=== PATIENT | female | born 2000 | race African-American/Black ===

== ENCOUNTER 2020-09-06 09:56 | Emergency (ER) | payer MEDICAID ==
[~2020-09-06] VITALS: Ht 162.6 cm; Wt 54.0 kg
[~2020-09-06 09:56] MED LIST: [UNRECOGNIZED DRUG - OTHER]
[2020-09-06] MEDS ORDERED: ONDANSETRON HCL 4MG/2ML INJ IV STA (10:23)
[2020-09-06] MEDS ORDERED: FAMOTIDINE 20MG/2ML VIAL IV STA (10:23)
[2020-09-06] MEDS ORDERED: HALOPERIDOL LACTATE 5MG/ML VIAL IM ONE (10:30)
[2020-09-06] MEDS ORDERED: SODIUM CHLORIDE 0.9% 1,000 ML IV ONE (10:30)
[2020-09-06 10:52] LABS: BASOPHILS % 0.4 % (0.0-2.0); EOSINOPHILS % 0.3 % (0.0-5.0); HEMATOCRIT. 38.3 % (36.0-48.0); HEMOGLOBIN. 12.8 g/dL (12.0-16.0); LYMPHOCYTES % 14.3 % (20.0-50.0); MEAN CORPUSCULAR VOLUME 83.7 fL (81.0-99.0); MEAN PLATELET VOLUME 8.3 fl (7.4-10.4); MONOCYTES % 6.9 % (2.0-8.0); NEUTROPHILS % 78.1 % (40.0-76.0); PLATELET 234 x1000/uL (130-400); RED BLOOD CELL COUNT 4.58 mill/uL (4.2-5.4); RED CELL DISTRIBUTION WIDTH 12.9 % (11.6-14.6)
[2020-09-06 10:59] LABS: CHLORIDE 109 mEq/L (98-107)
[2020-09-06 11:08] LABS: HCG SCREEN NEGATIVE
[2020-09-06] MEDS ORDERED: POTASSIUM CHLORIDE 20MEQ TABLET SR PO NR (11:30)
[2020-09-06] MEDS ORDERED: DIPHENHYDRAMINE 50MG/ML VIAL IV ONE (12:45)
[2020-09-06] MEDS ORDERED: METOCLOPRAMIDE HCL 10MG/2ML VIAL IV ONE (12:45)
[2020-09-06 14:15] VITALS: BP 108/50
[2020-09-06] MEDS ORDERED: FAMO-135 MT (14:41)
[2020-09-06] MEDS ORDERED: ONDA4TAB5 MT (14:41)
[2020-09-06 15:29] LABS: CLARITY URINE CLEAR (CLEAR); COLOR URINE YELLOW (YELLOW); KETONES URINE 1+ (NEGATIVE); LEUKOCYTE ESTERASE URINE NEGATIVE (NEGATIVE); NITRITE URINE NEGATIVE (NEGATIVE); OCCULT BLOOD URINE NEGATIVE (NEGATIVE); PH URINE 8.5 (4.5-8.0); PROTEIN URINE NEGATIVE (NEGATIVE); UROBILINOGEN URINE 0.2 E.U./dL (0.2-1.0)
== END 2020-09-06 15:30 | disposition home or self-care (01) ==
LOC: ER 09:56
DX: R11.2 Nausea with vomiting, unspecified (principal); E87.6 Hypokalemia; F12.10 Cannabis abuse, uncomplicated
CPT/HCPCS: 36415; 80053; 81003; 83690; 84703; 85025; 93005; 96361; 96374; 96375; 99284; J1200; J2405; J2765; J3490; J7030; Z7610